=== PATIENT | male | born 1955 | race Caucasian/White ===

== ENCOUNTER 2019-06-08 13:00 | Outpatient (CLI) | payer MEDICARE, OTHER | END 2019-06-08 23:59 | disposition home or self-care (01) | LOC: CFH 13:00 | PROVIDERS: ATTEND Internal Medicine Infectious Disease | DX: I82.622 Acute embolism and thrombosis of deep veins of left upper extremity (principal); R59.0 Localized enlarged lymph nodes ==

== ENCOUNTER 2019-10-19 07:28 | Outpatient (CLI) | payer MEDICARE, OTHER | END 2019-10-19 23:59 | disposition home or self-care (01) | LOC: CFH 07:28 → RAD 23:59 | PROVIDERS: ATTEND Internal Medicine Geriatric Medicine | DX: R13.10 Dysphagia, unspecified (principal); I87.8 Other specified disorders of veins; R60.0 Localized edema | CPT/HCPCS: 74230 ==

== ENCOUNTER → 2020-03-20 | Outpatient (CLI) | payer MEDICARE, OTHER | END | disposition home or self-care (01) | LOC: ROC 07:59 | PROVIDERS: ATTEND Radiology Radiation Oncology | DX: C15.9 Malignant neoplasm of esophagus, unspecified (principal); E78.00 Pure hypercholesterolemia, unspecified; I10 Essential (primary) hypertension | CPT/HCPCS: G0463 ==

== ENCOUNTER → 2020-03-31 | Outpatient (CLI) | payer MEDICARE, OTHER ==
[~2020-03-31] MED LIST: ATEN25TA PO; TAMS-11 PO
== END | disposition home or self-care (01) ==
LOC: STAR 08:38
PROVIDERS: ATTEND Internal Medicine Geriatric Medicine
DX: Z01.818 Encounter for other preprocedural examination (principal); Z11.59 Encounter for screening for other viral diseases; C15.9 Malignant neoplasm of esophagus, unspecified; R94.31 Abnormal electrocardiogram [ECG] [EKG]
CPT/HCPCS: 36415; 87635; 93005

== ENCOUNTER 2020-04-12 07:07 | Day surgery (SDC) | payer MEDICARE, OTHER ==
[~2020-04-12] VITALS: Ht 181.6 cm; Wt 88.1 kg
[2020-04-12 08:27] VITALS: BP 107/68
[2020-04-12] MEDS ORDERED: CEFAZOLIN PMX 1GM/50ML 50 ML IV ONE (09:00)
[2020-04-12] MEDS ORDERED: SODIUM CHLORIDE 0.9% 1,000 ML IV SCH (09:00)
[2020-04-12] MEDS ORDERED: MIDAZOLAM 1 MG/ML, 5ML ONE (09:08)
[2020-04-12] MEDS ORDERED: FLUMAZENIL 0.1 MG/1 ML, 5ML ONE (09:08)
[2020-04-12] MEDS ORDERED: FENTANYL PF 100 MCG/2ML ONE (09:08)
[2020-04-12] MEDS ORDERED: NALOXONE 1 MG/ML, 2ML ONE (09:08)
[2020-04-12] MEDS ORDERED: LIDOCAINE 1%, 10ML ONE (09:18)
[2020-04-12] MEDS ORDERED: LIDOCAINE 1%, 20ML ONE (09:18)
== END 2020-04-12 11:40 | disposition home or self-care (01) ==
LOC: OUT 07:07
PROVIDERS: ATTEND Internal Medicine Hematology & Oncology
DX: C15.9 Malignant neoplasm of esophagus, unspecified (principal); I10 Essential (primary) hypertension
CPT/HCPCS: 36561; 76937; 77001; 99156; 99157; C1788; C1894; J0690; J1642; J2250; J3010; J7030; J2310

== ENCOUNTER 2020-05-05 07:18 | Outpatient (CLI) | payer MEDICARE, OTHER | END 2020-05-05 23:59 | disposition home or self-care (01) | LOC: ROC 07:18 | PROVIDERS: ATTEND Radiology Radiation Oncology | DX: C15.5 Malignant neoplasm of lower third of esophagus (principal); I10 Essential (primary) hypertension; E78.00 Pure hypercholesterolemia, unspecified | CPT/HCPCS: G0463 ==

== ENCOUNTER 2020-05-19 10:58 | Emergency (ER) | payer MEDICARE, OTHER ==
[~2020-05-19] VITALS: Ht 182.9 cm; Wt 90.5 kg
--- NOTE | 2020-05-19 11:15 | NUR ---
PT HAD SECOND ROUND CHEMO. C/O NAUSEA, DIARRHEA, SAME SX LAST ROUND. PT HAD FEVER THIS AM, TYLENOL TAKEN THIS AM. NO FEVER AT THIS TIME.
[2020-05-19] MEDS ORDERED: SODIUM CHLORIDE FLUSH 10ML SYR IVF ONE (11:30)
--- NOTE | 2020-05-19 11:48 | NUR ---
PIV PLACED. LABS AND 2 SETS BLOOD CX DRAWN AND COLLECTED BY KICKING MACHINE OPERATOR. PT AWARE OF NEED FOR URINE SAMPLE. PER PA, OK TO GIVE PT WATER TO EXPIDITE URINE SAMPLE. PT RESTING COMFORTABLY ON GURNEY. NADN.
[2020-05-19 12:03] LABS: ALBUMIN 2.9 g/dL (3.4-5.0); ANION GAP 6 mmol/L (5-15); CALCIUM 8.5 mg/dL (8.5-10.1); CHLORIDE 110 mmol/L (98-107)
[2020-05-19 12:05] LABS: ALANINE AMINOTRANSFERASE 36 U/L (12-78); ALKALINE PHOSPHATASE 77 U/L (45-117); BILIRUBIN,TOTAL 0.6 mg/dL (0.2-1.0); TOTAL PROTEIN 6.1 g/dL (6.4-8.2)
--- NOTE | 2020-05-19 12:14 | NUR ---
PT PROVIDED URINE SAMPLE. UA COLLECTED AND SENT TO LAB.
[2020-05-19 12:28] LABS: MICROSCOPIC NOT IND
[2020-05-19 12:54] LABS: MEAN CORPUSCULAR HGB CONC 32.6 g/dL (33.2-36.2); PLATELET COUNT 96 x10^3/uL (130-400); RED BLOOD COUNT 4.78 x10^6/uL (4.38-5.82); RED CELL DISTRIBUTION WIDTH 16.7 % (9.4-14.8)
[2020-05-19 12:55] LABS: MD YES
[2020-05-19 12:58] LABS: BAND#(MANUAL) 0.74 x10^3/uL; BANDS%(MANUAL) 11 % (0-7); EOS#(MANUAL) 0.07 x10^3/uL (0.0-0.4); EOS% (MANUAL) 1 % (1-7); METAMYELOCYTES# (MANUAL) 0.07 x10^3/uL (0-0); METAMYELOCYTES% (MANUAL) 1 % (0-1); MONOS% (MANUAL) 6 % (2-9); MYELOCYTES# (MANUAL) 0.07 x10^3/uL (0-0); MYELOCYTES% (MANUAL) 1 % (0-0); SEG#(MANUAL) 5.36 x10^3/uL (1.8-6.8); SEGS% (MANUAL) 80 % (42-75)
[2020-05-19 12:59] LABS: ANISOCYTOSIS 1+; OVALOCYTES 1+; SCHISTOCYTES 1+
--- NOTE | 2020-05-19 13:04 | NUR ---
ALL RESULTS ARE BACK AT THIS TIME. CHART UP FOR RECHECK.
[2020-05-19 13:26] VITALS: BP 131/70
--- NOTE | 2020-05-19 13:49 | NUR ---
PROVIDER TO CONSULT ONCOLOGY
[2020-05-19 14:09] LABS: MEAN PLATELET VOLUME 7.3 fL (7.4-10.4)
[2020-05-19 14:17] LABS: <PLATELET ESTIMATE> DECREASED; <PLT MORPHOLOGY> NORMAL PLT MORPH
== END 2020-05-19 14:44 | disposition home or self-care (01) ==
LOC: ED 11:27
DX: R50.9 Fever, unspecified (principal); Z20.828 Contact with and (suspected) exposure to other viral communicable diseases; R07.89 Other chest pain
CPT/HCPCS: 36415; 71045; 80053; 81003; 83605; 85025; 87040; 87635; 99284

== ENCOUNTER → 2020-06-16 | Outpatient (CLI) | payer MEDICARE, OTHER ==
[~2020-06-16] MED LIST changes: +OMNIPAQUE 350 MG/ML, 100ML BOTTLE ONE
== END | disposition home or self-care (01) ==
LOC: CFH 08:22
PROVIDERS: ATTEND Internal Medicine Hematology & Oncology
DX: C15.9 Malignant neoplasm of esophagus, unspecified (principal); J18.9 Pneumonia, unspecified organism
CPT/HCPCS: 71260; 74160; Q9967